=== PATIENT | male | born 1980 | race Caucasian/White ===

== ENCOUNTER 2024-03-10 12:01 | Outpatient (CLI) | payer BC, SELFPAY ==
--- NOTE | ~2024-03-10 | US_ITS ---
EXAMINATION: US soft tissue head and neck DATE: 03/10/2024 12:15 INDICATION: Left face localized swelling, mass and lump, unspecified. TECHNIQUE: Multiple grayscale and Doppler ultrasound images of the head and neck were obtained. COMPARISON: Neck CT 05/16/2011 FINDINGS: In the patient's area of concern in the left face, there is a 1.8 x 1.8 x 1.0 cm subcutaneo us mass with similar echogenicity and echotexture to normal subcutaneous fat, consistent with a lipom a. IMPRESSION: 1. 1.8 cm subcutaneous lipoma in the left face. Reviewed, dictated and finalized at location A.
== END 2024-03-10 12:02 | disposition home or self-care (01) ==
LOC: GOSHIMG 12:02
PROVIDERS: PCP Internal Medicine; Visit Provider Clinical Nurse Specialist
DX: D17.0 Benign lipomatous neoplasm of skin and subcutaneous tissue of head, face and neck (principal)
CPT/HCPCS: 76536